=== PATIENT | female | born 1955 | race Caucasian/White ===

== ENCOUNTER 2020-11-03 14:26 | Emergency (ER) | payer MEDICARE, SELFPAY ==
[2020-11-03 14:43] VITALS: BP 207/114; PULSE 70; RESP 16; TEMP 36.8; O2SAT 96; BMI 49.8
--- NOTE | 2020-11-03 15:17 | ECG_ITS ---
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 Measurements Intervals [place] Rate: 67 P: 31 HI: 168 QRS: -22 QRSD: 109 T: 70 QT: 383 QTc: 406 Interpretive Statements SINUS RHYTHM BORDERLINE LEFT AXIS DEVIATION [QRS AXIS < -20] NONSPECIFIC T-WAVE ABNORMALITY Compared to ECG 08/24/2016 16:29:48 T-wave abnormality now present Electronically Signed On 11-04-2020 12:18:13 CDT by Tutu Arnold M.D. [id number]
[2020-11-03 15:20] VITALS: BP 246/95; PULSE 0; PULSE 75; O2SAT 96
--- NOTE | 2020-11-03 15:29 | W.ED.GENADLT ---
HPI - General Adult General: Chief complaint: General Medical Stated complaint: HIGH BP/WEAKNESS Time Seen by Provider: 11/03/20 15:16 History of Present Illness: HPI narrative: 65-year-old female presents emergency room for elevated blood pressure. She has known hypertension in the past she takes propranolol only takes 10 mg 4-5 times a day. She is taken higher doses in the past but states it makes her feel very tired. She has an appointment on Thursday to be evaluated for blood pressure because been running high for the last 2 weeks she had a blood pressure machine at home reports getting blood pressure as high as 254/134. She denies any chest pain no difficulty with vision speech hearing no gait instabilities or balance problems. She is not noticed any problem with fine motor movements. She denies any headache generally she is not been feeling well. She is not taken any other extra medications recently. Does not take any stimulants use large doses of caffeine or decongestants. Onset (ago): day(s) Relieving factors: none Exacerbating factors: none Associated symptoms: Reports headache(s) and malaise; Deny chest pain, confusion, cough, diaphoresis, decreased appetite, dyspnea, fevers/chills, nausea, rash, palpitations, seizures, short of breath, syncope, vomiting or weakness Treatments prior to arrival: other (Propranolol) Review of Systems Const: Reports: malaise; Denies: diaphoresis ENMT: Denies: throat pain, ear or mastoid pain, nasal discharge or nasal congestion Card: Denies: chest pain, palpitations or syncope Resp: Denies: dyspnea GI: Denies: nausea or vomiting : Denies: flank pain, difficulty voiding, dysuria, urinary frequency or urinary urgency Skin/Breast: Denies: rash Neuro: Reports: headache(s); Denies: confusion Physical Exam Const: COMMON NORMALS: no acute distress GENERAL APPEARANCE: cooperative and comfortable ORIENTATION/CONSCIOUSNESS: Yes awake, Yes oriented to person, Yes oriented to place and Yes oriented to time HENMT: COMMON NORMALS: normocephalic, atraumatic and hearing grossly normal bilaterally HEAD & SCALP: normocephalic and atraumatic Neck/C-Spine: COMMON NORMALS: no JVD Resp: COMMON NORMALS: normal respiratory effort, No retractions, No use of accessory muscles and clear to auscultation bilaterally AUSCULTATION: clear to auscultation bilaterally Cardio: COMMON NORMALS: no JVD, regular rate, regular rhythm and No murmurs present (Cardio) RATE: regular rate RHYTHM: regular rhythm GI: COMMON NORMALS: Soft to palpation and No hepatosplenomegaly present AUSCULTATION: Yes normoactive bowel sounds PALPATION: Yes Soft to palpation, No Tenderness to palpation present (GI), No Guarding due to palpation present (GI) and Yes No hepatosplenomegaly present Extremity: COMMON NORMALS: normal to inspection, capillary refill normal, no clubbing, cyanosis or edema, no calf tenderness and no pedal edema Neuro: SENSORIUM/ORIENTATION: Yes oriented to person, Yes oriented to place and Yes oriented to time Skin: COMMON NORMALS: no rashes or lesions noted GENERAL SKIN EXAM: no rashes or lesions noted Course Vital Signs: Vital signs: Vital Signs Temperature 98.2 F 11/03/20 14:43 Pulse Rate 85 11/03/20 17:29 Respiratory Rate 16 11/03/20 14:43 Blood Pressure 166/91 11/03/20 17:29 Pulse Oximetry 94 11/03/20 17:29 MDM - General Adult MDM Narrative: Medical decision making narrative: Pressure improved. Reviewed imaging labs and EKG with the patient. Will discharge home with blood pressure regimen medications as prescribed stop the propranolol follow-up with his primary care doctor in the next 1 week with blood pressure log. If you have worsening or change problems she was advised to return immediately to the emergency room. Lab Data: Labs: Lab Results 11/03/20 11/03/20 Range/Units 16:07 16:07 WBC 8.5 (4.0-10.0) 10^3/ uL RBC 4.65 (4.1-5.3) 10^6/u L Hgb 14.6 (11.5-15.3) g/dL Hct 43.2 (37.0-47.0) % MCV 92.9 (81-99) fL MCH 31.4 (28.0-34.0) pg MCHC 33.8 (30.0-36.0) g/dL RDW 12.4 (12.1-15.1) % Plt Count 155 (130-400) 10^3/c mm MPV 11.7 H (7.4-10.4) fL Neut % (Auto) 67.4 % Lymph % (Auto) 24.3 % [place] % (Auto) 5.7 % Eos % (Auto) 1.8 % Baso % (Auto) 0.6 % Neut # (Auto) 5.72 (1.8-7.7) 10^3/u L Lymph # (Auto) 2.1 (0.8-4.8) 10^3/u L [place] # (Auto) 0.5 (0.2-0.9) 10^3/u L Eos # (Auto) 0.2 (0.0-0.8) 10^3/u L Baso # (Auto) 0.1 (0.0-0.1) 10^3/u L Nucleated RBC % (a uto) 0 % Nucleated RBCs # 0.0 /100WBC Sodium 137 (136-145) mmol/L Potassium 4.4 (3.5-5.1) mmol/L Chloride 101 (98-107) mmol/L Carbon Dioxide 26 (22-29) mmol/L Anion Gap 14.4 (5-19) BUN 12 (8-23) mg/dL Creatinine 0.4 L (0.5-0.9) mg/dL GFR Calculation 160.2 H (90-130) mL/min Glucose 93 (65-115) mg/dL Calculated Osmolal ity 283 L (285-295) mOsm/k g Calcium 9.2 (8.5-10.5) mg/dL Total Bilirubin 0.9 (0.15-1.2) mg/dL AST 20 (0-32) U/L ALT 18 (0-33) U/L Alkaline Phosphata se 74 (35-105) IU/L Total Protein 7.0 (6.6-8.7) g/dL Albumin 4.1 (3.5-5.2) g/dL Globulin 2.9 (1.3-4.6) g/dL Discharge Plan Discharge Patient Disposition: Home Clinical Impression: Hypertension Condition: Stable Prescriptions: New Toprol XL 50 mg tablet extended release 24 hr 25 mg PO DAILY Qty: 30 RF: 0 amlodipine 10 mg tablet 5 mg PO DAILY Qty: 30 RF: 0 lisinopril 10 mg tablet 10 mg PO DAILY Qty: 30 RF: 0 Discharge Orders: Discharge ED (Routine); Ordered 11/03/20 Ordered By: Addy Best Referrals: Danielle Caldera, [Primary Care Provider] - Discharge Diet: Usual diet Patient Instructions: Opioid Safety Activity Restrictions/Additional Instructions: Avoid strenuous activity. Follow-up with your doctor next week to reevaluate blood pressure. Return if you have further problems. Coding Level of Care Code ED Social Media Marketing Analyst for Jasbir Maynard
[2020-11-03] MEDS: amlodipine 10 mg Tablet PO (15:59)
[2020-11-03] MEDS: metoprolol tartrate 1 mg/1 mL SDV 5 mL 2.5 MG IV (15:59)
[2020-11-03] MEDS: hyDRALAzine 20 mg/mL INJ 1 mL IVP (15:59)
[2020-11-03] MEDS: metoprolol tartrate 25 mg Tablet PO (15:59)
[2020-11-03 16:17] LABS: Basophils # 0.1 10^3/uL (0.0-0.1); Basophils % 0.6 %; Eosinophils # 0.2 10^3/uL (0.0-0.8); Eosinophils % 1.8 %; Hematocrit 43.2 % (37.0-47.0); Hemoglobin 14.6 g/dL (11.5-15.3); Lymphocytes # 2.1 10^3/uL (0.8-4.8); Lymphocytes % 24.3 %; Mean Corpuscular HGB Conc 33.8 g/dL (30.0-36.0); Mean Corpuscular Hemoglobin 31.4 pg (28.0-34.0); Mean Corpuscular Volume 92.9 fL (81-99); Mean Platelet Volume 11.7 fL (7.4-10.4); Monocytes # 0.5 10^3/uL (0.2-0.9); Monocytes % 5.7 %; Neutrophils # 5.72 10^3/uL (1.8-7.7); Neutrophils % 67.4 %; Nucleated Red Blood Cells % 0 %; Platelet Count 155 10^3/cmm (130-400); Red Blood Count 4.65 10^6/uL (4.1-5.3); Red Cell Distribution Width 12.4 % (12.1-15.1); White Blood Count 8.5 10^3/uL (4.0-10.0)
[2020-11-03 16:35] LABS: Alanine Aminotransferase 18 U/L (0-33); Albumin Level 4.1 g/dL (3.5-5.2); Alkaline Phosphatase 74 IU/L (35-105); Anion Gap 14.4 (5-19); Aspartate Amino Transferase 20 U/L (0-32); Blood Urea Nitrogen 12 mg/dL (8-23); Calcium 9.2 mg/dL (8.5-10.5); Carbon Dioxide 26 mmol/L (22-29); Chloride 101 mmol/L (98-107); Globulin 2.9 g/dL (1.3-4.6); Glomerular Filtration Rate 160.2 mL/min (90-130); Glucose 93 mg/dL (65-115); Osmolality Calculated 283 mOsm/kg (285-295); Potassium 4.4 mmol/L (3.5-5.1); Sodium 137 mmol/L (136-145); Total Bilirubin 0.9 mg/dL (0.15-1.2)
[2020-11-03 16:59] VITALS: BP 151/88; PULSE 84; O2SAT 94
[2020-11-03 17:29] VITALS: BP 166/91; PULSE 85; O2SAT 94
== END 2020-11-03 17:30 | disposition home or self-care (01) ==
PROVIDERS: Emergency Provider Family Medicine; PCP Family Medicine
DX: I10 Essential (primary) hypertension (principal)
CPT/HCPCS: 80053; 85025; 93005; 96374; 96375; 99284; J0360; J3490

== ENCOUNTER 2021-01-02 12:30 | Outpatient (CLI) | payer MEDICARE, SELFPAY | END 2021-01-02 12:31 | disposition home or self-care (01) | LOC: SLEEP 01-03 11:20 | PROVIDERS: PCP Family Medicine; Visit Provider Nurse Practitioner Family | DX: G47.10 Hypersomnia, unspecified (principal) | CPT/HCPCS: G0399 ==

== ENCOUNTER 2021-06-18 08:09 | Outpatient (CLI) | payer MEDICARE, SELFPAY ==
--- NOTE | 2021-06-18 08:17 | USCV_ITS ---
Hayley Bansal Age: 66 Gender: F : 1955 Exam Date: 06/18/2021 08:33 Ordering Phys: Leah Craig NP Technologist: Lorenzo iWlhelm [place] [facility] [place]: SOB BP: 132 / 70 HR: 71 Rhythm: Sinus Technical Quality: Adequate MEASUREMENTS (Male / Female) Normal Values 2D ECHO LV Diastolic Diameter PLAX 4.7 cm 4.2 - 5.9 / 3.9 - 5.3 cm LV Systolic Diameter PLAX 3.0 cm IVS Diastolic Thickness 1.2 cm 0.6 - 1.0 / 0.6 - 0.9 cm IVS Systolic Thickness 1.4 cm LVPW Diastolic Thickness 1.3 cm 0.6 - 1.0 / 0.6 - 0.9 cm LVPW Systolic Thickness 1.8 cm LVOT Diameter 2.0 cm LV Ejection Fraction 2D Teich 67.1 % LV Ejection Fraction MOD 2C 67.9 % LV Ejection Fraction 2C AL 68.5 % LA Diameter 3.6 cm LA Width 4.0 cm LA Height 5.0 cm RA Width 3.5 cm RA Height 3.9 cm Aorta at Sinotubular Diameter 2.4 cm M-MODE Aortic Annulus Diameter 2.5 cm LA Ao Ratio MM 1.4 MV E Point Septal Separation 0.4 cm DOPPLER AV Peak Velocity 181.3 cm/s LVOT Peak Velocity 132.0 cm/s AV Area Cont Eq vti 2.3 cm squared AV Area Cont Eq pk 2.3 cm squared MV Peak Velocity 140.0 cm/s MV Area PHT 3.9 cm squared Mitral E to A Ratio 0.7 MV E' Velocity 43.5 cm/s Mitral E to MV E' Ratio 8.1 Mitral E to LV E' Lateral Ratio 8.7 Mitral E to LV E' Septal Ratio 7.7 Right Atrial Pressure 3.0 mmHg RV Acceleration Time 0.1 s RV Ejection Time 0.3 s RV AcT/ET 0.3 FINDINGS Left Ventricle Normal left ventricular size and systolic function, EF 64 %. No regional wall motion abnormalities. Mild left ventricular hypertrophy. Grade I/IV diastolic dysfunction (abnormal relaxation filling pattern), normal to mildly elevated filling pressures. Right Ventricle The right ventricle is normal in size and function. Right Atrium The right atrium is normal in size. Left Atrium Mildly increased left atrial size. Mitral Valve Trace mitral valve regurgitation. Aortic Valve Thickened aortic valve. Aortic valve sclerosis. Tricuspid Valve No gross abnormalities noted Pulmonic Valve Pulmonic valve not well visualized. Pericardium Normal pericardium without effusion. Aorta Normal ascending aorta dimension. CONCLUSIONS Normal left ventricular size and systolic function, EF 64 %. No regional wall motion abnormalities. Mild left ventricular hypertrophy. Grade I/IV diastolic dysfunction (abnormal relaxation filling pattern), normal to mildly elevated filling pressures. Mildly increased left atrial size. Trace mitral valve regurgitation. Features of aortic valve sclerosis. There is no pericardial effusion. There are no intracardiac masses. No previous study is available for comparison. Dr Davin Forbes MD FAC (Electronically Signed) Final Date: 18 June 2021 14:05 S
== END 2021-06-18 08:10 | disposition home or self-care (01) ==
LOC: RAD 08:12
PROVIDERS: PCP Family Medicine; Visit Provider Nurse Practitioner Family
DX: R06.02 Shortness of breath (principal); I34.0 Nonrheumatic mitral (valve) insufficiency
CPT/HCPCS: 93306

== ENCOUNTER 2021-07-15 11:44 | Outpatient (CLI) | payer MEDICARE, SELFPAY ==
--- NOTE | 2021-07-15 11:53 | MM_ITS ---
WS: [id number] VIEWS: MLO and CC views both breasts. 3D digital tomosynthesis is also included in this exam. Comparison made with prior exam of 09/29/2019. Findings: There was no sign of mass, architectural distortion or suspicious calcification in either breast. Sc attered fibroglandular densities MM/[place] [id number] Impression: BI-RADS: 2-Benign FOLLOW-UP: 1 Year Follow-up This mammogram was also analyzed by the Computer Aided Detection System R2 Imag e Special Agent In Charge.
== END 2021-07-15 11:45 | disposition home or self-care (01) ==
LOC: RAD 11:46
PROVIDERS: PCP Family Medicine; Visit Provider Nurse Practitioner Family
DX: Z12.31 Encounter for screening mammogram for malignant neoplasm of breast (principal)
CPT/HCPCS: 77063; 77067

== ENCOUNTER → 2021-07-18 12:33 | Outpatient (BNVA) | payer MEDICARE, SELFPAY | PROVIDERS: PCP Family Medicine; Referring Provider Nurse Practitioner Family; Visit Provider Surgery | DX: Z12.11 Encounter for screening for malignant neoplasm of colon (principal) ==

== ENCOUNTER → 2021-08-20 12:39 | Outpatient (BNVA) | payer MEDICARE, SELFPAY | PROVIDERS: PCP Nurse Practitioner Family; Visit Provider Internal Medicine Cardiovascular Disease | DX: I11.0 Hypertensive heart disease with heart failure (principal); I50.9 Heart failure, unspecified; E66.9 Obesity, unspecified; Z68.42 Body mass index [BMI] 45.0-49.9, adult; G47.33 Obstructive sleep apnea (adult) (pediatric) | CPT/HCPCS: 99204 ==

== ENCOUNTER → 2021-08-28 08:58 | Outpatient (BNVA) | payer MEDICARE, SELFPAY | PROVIDERS: PCP Nurse Practitioner Family; Visit Provider Internal Medicine Cardiovascular Disease | DX: I10 Essential (primary) hypertension (principal); I50.9 Heart failure, unspecified | CPT/HCPCS: 80048; 83735; 83880 ==

== ENCOUNTER 2021-09-13 07:20 | Day surgery (SDC) | payer MEDICARE, SELFPAY ==
[2021-09-11 10:59] VITALS: BMI 49.9
[2021-09-13 07:35] VITALS: BP 176/89; PULSE 72; RESP 18; TEMP 36.6; O2SAT 96
--- NOTE | 2021-09-13 08:26 | PC.NURSE ---
Dr Treadwell started IV in right forearm.
[2021-09-13] MEDS: sodium chloride 0.9% 1,000 ML 30 ML IV (08:27)
--- NOTE | 2021-09-13 08:52 | P.ANESASSM_ITS ---
Pre-Anesthetic Assessment Height/Weight: Height 1.6 m Weight 127.913 kg Temp Pulse Resp BP Pulse Ox 97.8 F 72 18 176/89 96 09/13/21 07:35 09/13/21 07:35 09/13/21 07:35 09/13/21 07:35 09/13/21 07:35 Preop Diagnosis: diagnostic Operation Date: 09/13/21 09:00 Proposed Procedures p Colonoscopy 71111/Z12.11 screening for malignant neoplasm of colon(Not Osvaldo licable) - Zaid Santamaria MD Familial anesthetic complications: None Was Beta Jewell taken within 24 hours: Yes Was Clonidine taken within 24 hours: N/A Last intake: Intake Last Liquid Date 09/12/21 Last Liquid Time 23:00 Last Solid Date 09/11/21 Last Solid Time 17:00 Social No alcohol and No tobacco Exam alert, oriented x 3, clear to auscultation bilaterally and regular rate & rhythm Airway Submandibular: within normal limits Cervical ROM: within normal limits Mallampati: Class II Pulmonary Asthma and Sleep Apnea CV/HEM Congestive Heart Failure (diastolic dysfunction) and Hypertension Metabolic Morbid Obesity Anesthetic Plan ASA status: 3 Anesthesia: MAC Medications/Allergies Home Medications Medication Instructions Recorded Confirmed Last Taken Type acetaminophen 500 mg tablet 500 mg PO Q6H PRN 08/20/21 09/13/21 09/12/21 History albuterol sulfate 2.5 mg INHALATION Q4H PRN 08/20/21 09/13/21 08/14/21 History albuterol sulfate 90 mcg/actuation 2 puff INHALATION Q6H PRN 08/20/21 09/13/21 08/14/21 History aerosol inhaler amlodipine 10 mg tablet 10 mg PO DAILY tab 08/20/21 09/13/21 09/12/21 History azelastine 205.5 mcg (0.15 %) 1 spray INTRANASAL BID 08/20/21 09/13/21 09/12/21 History nasal spray chlorthalidone 25 mg tablet 25 mg PO DAILY #30 tab 08/20/21 09/13/21 09/12/21 Rx citalopram 20 mg tablet 20 mg PO DAILY 08/20/21 09/13/21 09/12/21 History cyclobenzaprine 10 mg tablet 10 mg PO PRN PRN 08/20/21 09/13/21 09/09/21 History gabapentin 100 mg capsule 200 mg PO TID cap 08/20/21 09/13/21 09/12/21 History hydroxyzine HCl 25 mg tablet 25 mg PO BID PRN 08/20/21 09/13/21 09/12/21 History ibuprofen 200 mg tablet 200 mg PO Q6H PRN 08/20/21 09/13/21 09/11/21 History metoprolol succinate 50 mg 50 mg PO DAILY tab 08/20/21 09/13/21 09/12/21 History tablet,extended release 24 hr (Toprol XL) omeprazole 20 mg capsule,delayed 20 mg PO DAILY 08/20/21 09/13/21 09/11/21 History release potassium chloride 10 mEq 10 meq PO DAILY #90 cap 09/02/21 09/13/21 09/11/21 Rx capsule,extended release Allergies Allergy/AdvReac Type Severity Reaction Status Date / Time No Known Allergies Allergy Unverified 07/18/21 13:43 Current Medications Generic Name Dose Route Start Last Admin Trade Name Janiq PRN Reason Stop Dose Admin Sodium Chloride 1,000 mls @ 30 mls/hr 09/13/21 07:30 09/13/21 08:27 Sodium Chloride 0.9% IV 09/14/21 07:29 30 mls/hr .Q24H AMARILIS Administration PFSH Anesthesia Medical History (Updated 08/20/21 @ 13:37 by Nicole Mon MD) Anxiety and depression CHF (congestive heart failure), NYHA class III HTN (hypertension) Obesity ASHER (obstructive sleep apnea) Surgical History (Updated 08/20/21 @ 13:14 by Nicole Mon MD) S/P appendectomy (~1968) S/P cholecystectomy (~1992) S/P hysterectomy (~2000) Family History Mother CHF (congestive heart failure) Diabetes Hypertension Family/Other CHF (congestive heart failure) Father Stroke Hypertension Chronic kidney disease (CKD) Social History Smoking and tobacco status: never smoked Data Anesthesia Cardiac Studies: Echocardiogram 06/18/21
--- NOTE | 2021-09-13 09:26 | P.HP_ITS ---
Same Day Surgery H&P Indication for Procedure/HPI DATE OF PROCEDURE: September 13, 2021 CHIEF COMPLAINT/INDICATIONFOR SURGICAL PROCEDURE: colonoscopy PREOP DIAGNOSIS: diagnostic PLANNED PROCEDURE: Operation Date: 09/13/21 09:00 Proposed Procedures p Colonoscopy 45978/Z12.11 screening for malignant neoplasm of colon(Not Applicable) - Zaid Santamaria MD Medications/Allergies* Home Medications Medication Instructions Recorded Confirmed Type acetaminophen 500 mg tablet 500 mg PO Q6H PRN 08/20/21 09/13/21 History albuterol sulfate 2.5 mg INHALATION Q4H PRN 08/20/21 09/13/21 History albuterol sulfate 90 mcg/actuation 2 puff INHALATION Q6H PRN 08/20/21 09/13/21 History aerosol inhaler amlodipine 10 mg tablet 10 mg PO DAILY tab 08/20/21 09/13/21 History azelastine 205.5 mcg (0.15 %) 1 spray INTRANASAL BID 08/20/21 09/13/21 History nasal spray citalopram 20 mg tablet 20 mg PO DAILY 08/20/21 09/13/21 History cyclobenzaprine 10 mg tablet 10 mg PO PRN PRN 08/20/21 09/13/21 History gabapentin 100 mg capsule 200 mg PO TID cap 08/20/21 09/13/21 History hydroxyzine HCl 25 mg tablet 25 mg PO BID PRN 08/20/21 09/13/21 History ibuprofen 200 mg tablet 200 mg PO Q6H PRN 08/20/21 09/13/21 History metoprolol succinate 50 mg 50 mg PO DAILY tab 08/20/21 09/13/21 History tablet,extended release 24 hr (Toprol XL) omeprazole 20 mg capsule,delayed 20 mg PO DAILY 08/20/21 09/13/21 History release Allergies/Adverse Reactions Allergy/AdvReac Type Severity Reaction Status Date / Time No Known Allergies Allergy Unverified 07/18/21 13:43 Current Medications: Generic Name Dose Route Start Last Admin Trade Name Freq PRN Reason Stop Dose Admin Sodium Chloride 1,000 mls @ 30 mls/hr 09/13/21 07:30 09/13/21 08:27 Sodium Chloride 0.9% IV 09/14/21 07:29 30 mls/hr .Q24H AMARILIS Administration Pertinent History/Comorbid Conditions* Medical History (Updated 08/20/21 @ 13:37 by Nicole Mon MD) Anxiety and depression CHF (congestive heart failure), NYHA class III HTN (hypertension) Obesity ASHER (obstructive sleep apnea) Surgical History (Updated 08/20/21 @ 13:14 by Nicole Mon MD) S/P appendectomy (~1968) S/P cholecystectomy (~1992) S/P hysterectomy (~2000) Family History (Updated 08/20/21 @ 12:59 by Isabel Morales RN) Diabetes Mother CHF (congestive heart failure) Mother Family/Other Chronic kidney disease (CKD) Father Hypertension Mother Father Stroke Father Social History Smoking and tobacco status: never smoked Pertinent Exam Findings alert, oriented x 3 and regular rate & rhythm Recommendations Surgery/Procedure today Coding Level of Care Code Acute Manager Risk Management for Jasbir Maynard
[2021-09-13 09:59] VITALS: BP 146/69; PULSE 68; RESP 18; TEMP 36.1; O2SAT 99
--- NOTE | 2021-09-13 10:02 | ANE.PACU2 ---
Inpatient post-anesthesia follow up: Airway intact: Yes Vital signs: Temperature 97.0 F Pulse Rate 68 Respiratory Rate 18 Blood Pressure 146/69 Pulse Oximetry 99 Oxygen Delivery Me thod Nasal Cannula Oxygen Flow Rate 4 Fraction of Inspir ed Oxygen Hydration adequate: Yes Nausea and vomiting: No Pain level: 1 Mental status: Baseline
[2021-09-13 10:12] VITALS: BP 159/80; PULSE 71; RESP 18; O2SAT 100
== END 2021-09-13 10:22 | disposition home or self-care (01) ==
PROVIDERS: PCP Nurse Practitioner Family; Visit Provider Surgery
PROC: 0DJD8ZZ Inspection of Lower Intestinal Tract, Via Natural or Artificial Opening Endoscopic (ICD-10-PCS; CPT 45378; principal; 2021-09-13 09:00)
DX: Z12.11 Encounter for screening for malignant neoplasm of colon (principal); K57.30 Diverticulosis of large intestine without perforation or abscess without bleeding; D12.8 Benign neoplasm of rectum; K64.8 Other hemorrhoids; F41.9 Anxiety disorder, unspecified; F32.9 Major depressive disorder, single episode, unspecified; I11.0 Hypertensive heart disease with heart failure; I50.9 Heart failure, unspecified; E66.9 Obesity, unspecified; Z68.43 Body mass index [BMI] 50.0-59.9, adult; G47.33 Obstructive sleep apnea (adult) (pediatric); Z82.49 Family history of ischemic heart disease and other diseases of the circulatory system; Z82.3 Family history of stroke
CPT/HCPCS: 45385; 88305; J2704; J7030

== ENCOUNTER → 2021-10-01 09:14 | Outpatient (BNVA) | payer MEDICARE, SELFPAY | PROVIDERS: PCP Nurse Practitioner Family; Visit Provider Surgery | DX: Z09 Encounter for follow-up examination after completed treatment for conditions other than malignant neoplasm (principal) | CPT/HCPCS: 99212 ==

== ENCOUNTER → 2021-11-06 11:31 | Outpatient (BNVA) | payer MEDICARE, SELFPAY | PROVIDERS: PCP Nurse Practitioner Family; Referring Provider Nurse Practitioner Family; Visit Provider Orthopaedic Surgery | DX: M17.12 Unilateral primary osteoarthritis, left knee (principal) | CPT/HCPCS: 20610; 73560; 73565; 99203 ==

== ENCOUNTER → 2021-11-19 13:45 | Outpatient (BNVA) | payer MEDICARE, SELFPAY | PROVIDERS: PCP Nurse Practitioner Family; Visit Provider Internal Medicine Cardiovascular Disease | DX: I11.0 Hypertensive heart disease with heart failure (principal); I50.30 Unspecified diastolic (congestive) heart failure; G47.33 Obstructive sleep apnea (adult) (pediatric); E66.9 Obesity, unspecified; Z68.43 Body mass index [BMI] 50.0-59.9, adult | CPT/HCPCS: 99214 ==

== ENCOUNTER 2022-01-05 13:51 | Emergency (ER) | payer MEDICARE, SELFPAY ==
[2022-01-05 13:58] VITALS: BP 187/107; PULSE 81; RESP 18; TEMP 36.5; O2SAT 93; BMI 70.5
--- NOTE | 2022-01-05 14:22 | ECG_ITS ---
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 Measurements Intervals [place] Rate: 73 P: 27 NC: 177 QRS: -54 QRSD: 113 T: 51 QT: 398 QTc: 441 Interpretive Statements SINUS RHYTHM PATTERN CONSISTENT WITH PULMONARY DISEASE LEFT ANTERIOR FASCICULAR BLOCK [QRS AXIS <= -45, QR IN I, RS IN II] POSSIBLE LEFT VENTRICULAR HYPERTROPHY [VOLTAGE CRITERIA PLUS LAE OR QRS WIDENING] NONSPECIFIC ST & T-WAVE ABNORMALITY Compared to ECG 11/03/2020 15:25:04 Left anterior fascicular block now present T-wave abnormality still present Electronically Signed On 01-05-2022 18:24:19 CDT by Davin Forbes M.D. [id number]
--- NOTE | 2022-01-05 15:15 | ED_ITS ---
HPI - General Adult General: Chief complaint: Weakness Stated complaint: dizzy, chills, weak Time Seen by Provider: 01/05/22 15:12 History of Present Illness: Patient is a 66-year-old male w/ hx of anxiety, CHF, hypertension who presents to the emergency room for evaluation of cold s ensation over the body. Patient first noticed symptoms earlier today when upon waking up. Patient states that this cold rash last for few seconds at a time and goes over her. Patient reports lightheadedness when this happens. Patient denies any prior sensation similar to this point. Patient denies any paresthesia or any weakness associated with the symptoms. Patient also denies any fever, cough, runny nose sore throat chest pain, shortness of breath, abdominal pain, diarrhea melena or hematochezia. Patient has no other focal complaints at this time. Onset:this AM Duration:ongoing Location:home Severity:mild/moderate Associated symptoms: Deny chest pain, dyspnea, nausea, rash, palpitations or vomiting Review of Systems Const: Reports: chills and other (+cold sensation ove rbody); Denies: fever(s) Eyes: Denies: change in vision ENMT: Denies: mouth pain Card: Denies: chest pain or palpitations Resp: Denies: dyspnea or non-productive cough GI: Denies: abdominal pain, nausea, vomiting or diarrhea : Denies: dysuria Musc: Denies: extremity pain Skin/Breast: Denies: rash or new lesions Neuro: Denies: weakness in extremities Psych: Reports: other (Normal mood) Shayne/Lymph: Denies: easy bruising PFSH ED PFSH: Medical History Anxiety and depression CHF (congestive heart failure), NYHA class III HTN (hypertension) Obesity ASHER (obstructive sleep apnea) Surgical History S/P appendectomy (~1968) S/P cholecystectomy (~1992) S/P hysterectomy (~2000) Status post colonoscopy (09/13/21) Family History Mother CHF (congestive heart failure) Diabetes Hypertension Family/Other CHF (congestive heart failure) Father Stroke Hypertension Chronic kidney disease (CKD) Social History Smoking and tobacco status: never smoked Physical Exam Const: COMMON NORMALS: alert HENMT: COMMON NORMALS: atraumatic HEAD & SCALP: atraumatic MOUTH: moist mucous membranes not abnormal Eye: COMMON NORMALS: EOMs intact bilaterally and conjunctivae normal CONJUNCTIVA: Yes conjunctivae normal Neck/C-Spine: COMMON NORMALS: full ROM and supple Resp: COMMON NORMALS: normal respiratory effort and clear to auscultation bilaterally AUSCULTATION: clear to auscultation bilaterally Cardio: COMMON NORMALS: regular rate RATE: regular rate GI: COMMON NORMALS: Soft to palpation and non-tender PALPATION: Yes Soft to palpation : OTHER: No focal TTP. NO guarding rebound, guarding, rigidity. No CVA tenderness to percussion. Neg Rivera/Neg McBurney's point tenderness, no suprabupic tenderness to palpation. Extremity: COMMON NORMALS: full ROM OTHER: No escobar sign Neuro: SENSORIUM/ORIENTATION: Yes alert MOTOR EXAM: No Abnormal motor strength present and Other motor observations present (no focal motor deficits) Psych: COMMON NORMALS: speech normal SPEECH: Yes normal speech MOOD & AFFECT: Yes euthymic mood Course Vital Signs: Vital signs: Vital Signs Temperature 97.7 F 01/05/22 13:58 Pulse Rate 90 01/05/22 19:36 Respiratory Rate 18 01/05/22 19:36 Blood Pressure 162/68 01/05/22 19:36 Pulse Oximetry 94 01/05/22 19:36 Oxygen Delivery Me thod 01/05/22 18:30 Oxygen Flow Rate 2 01/05/22 18:30 MDM - General Adult Medical Decision Making Patient is a 66-year-old male w/ hx of anxiety, CHF, hypertension who presents to the emergency room for evaluation of cold sensation over the body. Physical exam, patient is hemodynamically stable. Patient was observed to have episodes of chills over her body lasting for few seconds at a time. Patient is neurologically intact. Rest of exam is unremarkable. Lab work-up showed white count 9.1. Patient's had a sodium 134 and a potassium of 3.1. Rest of labs unremarkable. EKG is unremarkable. X-ray chest appears to be clear. Troponin is within normal limit. A the present time, I do not suspect ACS. Given the fact the patient has a sick contact at home, this could potentially be viral infection. Respiratory viral panel has been sent. Patient continues to be hemodynamically stable in no acute distress while observed in the emergency room. Patient received IVF and Tylenol. Disposition: Discharge. Patient counseled regarding diagnostic impression, treatment plan. Patient given ED strict return precautions to return for continuation, worsening, or development of new symptoms. Instructed to f/u w/ PCP regarding symptoms today. Patient verbalized understanding. Lab Data : 01/05/22 15:45 01/05/22 15:45 Radiology Impressions Chest X-Ray 01/05/22 15:41 IMPRESSION: No acute findings. Laboratory Results WBC 9.1 10^3/uL (4.0-10.0) 01/05/22 15:45 RBC 4.51 10^6/uL (4.1-5.3) 01/05/22 15:45 Hgb 14.0 g/dL (11.5-15.3) 01/05/22 15:45 Hct 40.8 % (37.0-47.0) 01/05/22 15:45 MCV 90.5 fl (81-99) 01/05/22 15:45 MCH 31.0 pg (28.0-34.0) 01/05/22 15:45 MCHC 34.3 g/dL (30.0-36.0) 01/05/22 15:45 RDW 12.4 % (12.1-15.1) 01/05/22 15:45 Plt Count 179 10^3/cmm (130-400) 01/05/22 15:45 MPV 11.4 fL (7.4-10.4) H 01/05/22 15:45 Neut % (Auto) 81.4 % 01/05/22 15:45 Lymph % (Auto) 12.5 % 01/05/22 15:45 [place] % (Auto) 4.1 % 01/05/22 15:45 Eos % (Auto) 0.7 % 01/05/22 15:45 Baso % (Auto) 0.5 % 01/05/22 15:45 Neut # (Auto) 7.41 10^3/uL (1.8-7.7) 01/05/22 15:45 Lymph # (Auto) 1.1 10^3/uL (0.8-4.8) 01/05/22 15:45 [place] # (Auto) 0.4 10^3/uL (0.2-0.9) 01/05/22 15:45 Eos # (Auto) 0.1 10^3/uL (0.0-0.8) 01/05/22 15:45 Baso # (Auto) 0.1 10^3/uL (0.0-0.1) 01/05/22 15:45 Nucleated RBC % (auto) 0 % 01/05/22 15:45 Nucleated RBCs # 0.0 /100WBC 01/05/22 15:45 Sodium 134 mmol/L (136-145) L 01/05/22 15:45 Potassium 3.1 mmol/L (3.5-5.1) L 01/05/22 15:45 Chloride 91 mmol/L (98-107) L 01/05/22 15:45 Carbon Dioxide 32 mmol/L (22-29) H 01/05/22 15:45 Anion Gap 14.1 (5-19) 01/05/22 15:45 BUN 11 mg/dL (8-23) 01/05/22 15:45 Creatinine 0.4 mg/dL (0.5-0.9) L 01/05/22 15:45 GFR Calculation 159.7 mL/min (90-130) H 01/05/22 15:45 Glucose 153 mg/dL (65-115) H 01/05/22 15:45 Calculated Osmolality 280 mOsm/kg (285-295) L 01/05/22 15:45 Lactate 1.5 mmol/L (0.5-2.2) 01/05/22 15:45 Calcium 9.5 mg/dL (8.5-10.5) 01/05/22 15:45 Magnesium 1.9 mg/dL (1.7-2.3) 01/05/22 15:45 Total Bilirubin 0.7 mg/dL (0.15-1.2) 01/05/22 15:45 AST 35 U/L (0-32) H 01/05/22 15:45 ALT 35 U/L (0-33) H 01/05/22 15:45 Alkaline Phosphatase 75 U/L (35-105) 01/05/22 15:45 Troponin T Baseline 8 ng/L (0-10) 01/05/22 15:45 Total Protein 7.5 g/dL (6.6-8.7) 01/05/22 15:45 Albumin 4.1 g/dL (3.5-5.2) 01/05/22 15:45 Globulin 3.4 g/dL (1.3-4.6) 01/05/22 15:45 Urine Color Yellow (Yellow) 01/05/22 14:30 Urine Appearance Sl hazy (CLEAR) A 01/05/22 14:30 Urine pH 6 (5-7) 01/05/22 14:30 Ur Specific [place] 1.020 (1.005-1.030) 01/05/22 14:30 Urine Protein Neg (Negative) 01/05/22 14:30 Urine Glucose (UA) Norm (Normal) 01/05/22 14:30 Urine Ketones 1+ (Negative) H 01/05/22 14:30 Urine Blood Neg (Negative) 01/05/22 14:30 Urine Nitrate Negative (Negative) 01/05/22 14:30 Urine Bilirubin Neg (Negative) 01/05/22 14:30 Urine Urobilinogen Norm mg/dL (Negative) 01/05/22 14:30 Ur Leukocyte Esterase Negative (Negative) 01/05/22 14:30 Urine RBC None /hpf (0-2) 01/05/22 14:30 Urine WBC Rare /hpf (0-5) 01/05/22 14:30 Ur Squamous Epith Cells 0-4 /hpf (0-5) H 01/05/22 14:30 Amorphous Sediment Not Reportable 01/05/22 14:30 Urine Bacteria 1+ /hpf (NONE) H 01/05/22 14:30 Urine Mucus 1+ /hpf 01/05/22 14:30 Nasal Influ A H1 2008 PCR Not detected (NOT DETECT) 01/05/22 15:50 RSV Nasal Swab Cancelled 01/05/22 15:50 RSV Nasal Swab Int Cntl Cancelled 01/05/22 15:50 Adenovirus (PCR) Cancelled 01/05/22 15:50 Adenovirus (PCR) Not detected (NOT DETECT) 01/05/22 15:50 C. pneumoniae DNA (PCR) Not detected (NOT DETECT) 01/05/22 15:50 Coronavirus 229E (PCR) Not detected (NOT DETECT) 01/05/22 15:50 Human Metapneumovir PCR Cancelled 01/05/22 15:50 Human Metapneumovir PCR Not detected (NOT DETECT) 01/05/22 15:50 Influenza A (RT-PCR) Cancelled 01/05/22 15:50 Influenza A (H1) PCR Cancelled 01/05/22 15:50 Influenza A (H1) PCR Not detected (NOT DETECT) 01/05/22 15:50 Influenza A (H3) PCR Cancelled 01/05/22 15:50 Influenza A (H3) PCR Not detected (NOT DETECT) 01/05/22 15:50 Influenza Type A (PCR) Not detected (NOT DETECT) 01/05/22 15:50 Influenza B (RT-PCR) Cancelled 01/05/22 15:50 Influenza Type B (PCR) Not detected (NOT DETECT) 01/05/22 15:50 M. pneumoniae (PCR) Not detected (NOT DETECT) 01/05/22 15:50 Parainfluenzae Type 1 Cancelled 01/05/22 15:50 Parainfluenza 1 (PCR) Not detected (NOT DETECT) 01/05/22 15:50 Parainfluenzae Type 2 Cancelled 01/05/22 15:50 Parainfluenza 2 (PCR) Not detected (NOT DETECT) 01/05/22 15:50 Parainfluenzae Type 3 Cancelled 01/05/22 15:50 Parainfluenza 3 (PCR) Not detected (NOT DETECT) 01/05/22 15:50 Parainfluenza 4 (PCR) Not detected (NOT DETECT) 01/05/22 15:50 RSV Ab Comment Cancelled 01/05/22 15:50 RSV Type A (PCR) Not detected (NOT DETECT) 01/05/22 15:50 RSV Type B (PCR) Not detected (NOT DETECT) 01/05/22 15:50 Rhinovirus (PCR) Cancelled 01/05/22 15:50 Entero/Rhino (PCR) Not detected (NOT DETECT) 01/05/22 15:50 SARS-CoV-2 (PCR) Not detected (NOT DETECT) 01/05/22 15:50 Imaging Data Other Imaging: Radiologist's impression: [address] [address] XRay Report Signed Patient: Hayley Bansal Unit #: [id number] : 1955 Age/Sex: 66 / F ADM Date: 01/05/22 Loc: ER Room/Bed: Attending Dr: Ordering Provider/Ordering MD: Ector Cabrera MD Date of Service: 01/05/22 Procedure(s): XR chest 1V portable [id number] Accession Number(s): [id number] Report Number: [id number] PROCEDURE INFORMATION: Exam: XR Chest Exam date and time: 01/05/2022 3:51 PM Age: 66 years old Clinical indication: Dyspnea TECHNIQUE: Imaging protocol: Radiologic exam of the chest. Views: 1 view. COMPARISON: CR XR chest 1V [id number] 08/24/2016 4:43 PM FINDINGS: Lungs: Unremarkable. No consolidation. Pleural spaces: Unremarkable. No pleural effusion. No pneumothorax. Heart/Mediastinum: Unremarkable. No cardiomegaly. Bones/joints: Unremarkable. XR/XR chest 1V portable [id number] IMPRESSION: No acute findings. ? Dictated By: Arthur Lala MD Signed By: Arthur Lala MD Signed Date/Time: 01/05/22 171 Discharge Plan Discharge Patient Disposition: Home Clinical Impression: Chill Condition: Stable Prescriptions: No Action chlorthalidone 50 mg tablet 50 mg PO DAILY Qty: 90 3RF acetaminophen 500 mg tablet 500 mg PO Q6H PRN (Reason: Pain) albuterol sulfate 2.5 mg /3 mL (0.083 %) solution for nebulization 2.5 mg inhalation Q4H PRN (Reason: Bronchospasm) albuterol sulfate 90 mcg/actuation HFA aerosol inhaler 2 puff inhalation Q6H PRN (Reason: Bronchospasm) amlodipine 10 mg tablet 10 mg PO DAILY azelastine 205.5 mcg (0.15 %) spray,non-aerosol 1 spray intranasal BID Rx Instructions: administer into each nostril citalopram 20 mg tablet 20 mg PO DAILY cyclobenzaprine 10 mg tablet 10 mg PO PRN PRN (Reason: Pain) hydroxyzine HCl 25 mg tablet 25 mg PO BID PRN (Reason: Anxiety) Toprol XL 50 mg tablet extended release 24 hr 50 mg PO DAILY gabapentin 100 mg capsule 200 mg PO TID ibuprofen 200 mg tablet 200 mg PO Q6H PRN (Reason: Pain) omeprazole 20 mg capsule,delayed release(DR/EC) 20 mg PO DAILY PRN (Reason: Heartburn) potassium chloride 20 mEq tablet extended release 20 meq PO DAILY Qty: 90 2RF Discharge Orders: Discharge ED (Routine); Ordered 01/05/22 Ordered By: Ector Cabrera Referrals: Leah Craig NP [Primary Care Provider] - Discharge Diet: Advance as tolerated Discharge Activity: Increase activity as tolerated Activity Restrictions/Additional Instructions: Come back if you have any new or concerning issues. Come back to the emergency room if you have any chest pain, fever or chills, worsening shortness of breath, worsening exertional lightheadedness, or any new or concerning complaints. Coding Level of Care Code ED Ballistics Teacher for Jasbir Fwbrian Exam Comprehensive
--- NOTE | 2022-01-05 15:41 | XRR_ITS ---
PROCEDURE INFORMATION: Exam: XR Chest Exam date and time: 01/05/2022 3:51 PM Age: 66 years old Clinical indication: Dyspnea TECHNIQUE: Imaging protocol: Radiologic exam of the chest. Views: 1 view. COMPARISON: CR XR chest 1V [id number] 08/24/2016 4:43 PM FINDINGS: Lungs: Unremarkable. No consolidation. Pleural spaces: Unremarkable. No pleural effusion. No pneumothorax. Heart/Mediastinum: Unremarkable. No cardiomegaly. Bones/joints: Unremarkable. XR/XR chest 1V portable [id number] IMPRESSION: No acute findings.
--- NOTE | 2022-01-05 15:48 | ECG_ITS ---
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 Measurements Intervals [place] Rate: 70 P: 57 [place]: 189 QRS: -52 QRSD: 116 T: 59 QT: 403 QTc: 436 Interpretive Statements SINUS RHYTHM WITH SINUS ARRHYTHMIA PATTERN CONSISTENT WITH PULMONARY DISEASE LEFT ANTERIOR FASCICULAR BLOCK [QRS AXIS <= -45, QR IN I, RS IN II] NONSPECIFIC ST & T-WAVE ABNORMALITY Compared to ECG 01/05/2022 14:22:56 No significant changes Electronically Signed On 01-05-2022 18:27:05 CDT by Davin Forbes M.D. [id number]
[2022-01-05 15:54] LABS: Basophils # 0.1 10^3/uL (0.0-0.1); Basophils % 0.5 %; Eosinophils # 0.1 10^3/uL (0.0-0.8); Eosinophils % 0.7 %; Hematocrit 40.8 % (37.0-47.0); Lymphocytes # 1.1 10^3/uL (0.8-4.8); Lymphocytes % 12.5 %; Mean Corpuscular HGB Conc 34.3 g/dL (30.0-36.0); Mean Corpuscular Volume 90.5 fl (81-99); Mean Platelet Volume 11.4 fL (7.4-10.4); Monocytes # 0.4 10^3/uL (0.2-0.9); Monocytes % 4.1 %; Neutrophils # 7.41 10^3/uL (1.8-7.7); Neutrophils % 81.4 %; Nucleated Red Blood Cells % 0 %; Platelet Count 179 10^3/cmm (130-400); Red Blood Count 4.51 10^6/uL (4.1-5.3); Red Cell Distribution Width 12.4 % (12.1-15.1); White Blood Count 9.1 10^3/uL (4.0-10.0)
[2022-01-05 16:00] VITALS: BP 154/69; PULSE 73; RESP 16; O2SAT 94
[2022-01-05 16:18] LABS: Lactate (Lactic Acid level) 1.5 mmol/L (0.5-2.2)
[2022-01-05 16:19] LABS: Alanine Aminotransferase 35 U/L (0-33); Albumin Level 4.1 g/dL (3.5-5.2); Alkaline Phosphatase 75 U/L (35-105); Anion Gap 14.1 (5-19); Aspartate Amino Transferase 35 U/L (0-32); Blood Urea Nitrogen 11 mg/dL (8-23); Calcium 9.5 mg/dL (8.5-10.5); Carbon Dioxide 32 mmol/L (22-29); Chloride 91 mmol/L (98-107); Globulin 3.4 g/dL (1.3-4.6); Glomerular Filtration Rate 159.7 mL/min (90-130); Glucose 153 mg/dL (65-115); Magnesium 1.9 mg/dL (1.7-2.3); Osmolality Calculated 280 mOsm/kg (285-295); Potassium 3.1 mmol/L (3.5-5.1); Sodium 134 mmol/L (136-145); Total Bilirubin 0.7 mg/dL (0.15-1.2); Total Protein 7.5 g/dL (6.6-8.7)
[2022-01-05 16:21] LABS: Troponin(5th) Baseline 8 ng/L (0-10)
[2022-01-05] MEDS: sodium chloride 0.9% 500 ML IV (16:34)
[2022-01-05] MEDS: acetaminophen 500 mg Tablet PO (16:34)
[2022-01-05 17:00] VITALS: BP 183/66; PULSE 68; RESP 15; O2SAT 96
[2022-01-05 17:45] LABS: Add Urine Microscopic? YES; Bilirubin Urine Neg (Negative); Blood Urine Neg (Negative); Glucose Urine UA Norm (Normal); Ketones Urine 1+ (Negative); Leukocyte Esterase Urine Negative (Negative); Nitrate Urine Negative (Negative); Protein Urine Neg (Negative); Urine Appearance SL Hazy (CLEAR); Urine Color Yellow (Yellow); Urobilinogen Urine Norm (Negative); pH Urine 6 (5-7)
[2022-01-05 17:46] LABS: Bacteria Urine 1+ /hpf; Mucus Urine 1+ /hpf; Squamous Epithelial Cell Urine 0-4 /hpf (0-5); WBC Urine RARE /hpf (0-5)
[2022-01-05 17:47] LABS: Add Urine Culture? No
[2022-01-05 18:00] VITALS: BP 154/58; PULSE 78; RESP 15; O2SAT 95
[2022-01-05 18:30] VITALS: BP 184/82; PULSE 87; RESP 15; O2SAT 96
--- NOTE | 2022-01-05 18:31 | ECG_ITS ---
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 Measurements Intervals [place] Rate: 81 P: 63 [place]: 188 QRS: -52 QRSD: 112 T: 55 QT: 407 QTc: 473 Interpretive Statements SINUS RHYTHM PATTERN CONSISTENT WITH PULMONARY DISEASE LEFT ANTERIOR FASCICULAR BLOCK [QRS AXIS <= -45, QR IN I, RS IN II] NONSPECIFIC ST & T-WAVE ABNORMALITY Compared to ECG 01/05/2022 15:48:28 Sinus arrhythmia no longer present T-wave abnormality still present Electronically Signed On 01-06-2022 21:29:50 CDT by Davin Forbes M.D. [email or web address]
[2022-01-05 19:11] LABS: Adenovirus Not Detected (NOT DETECT); Chlamydia Pneumoniae Not Detected (NOT DETECT); Coronavirus 229E,HKU1,NL63,OC4 Not Detected (NOT DETECT); Human Metapneumovirus Not Detected (NOT DETECT); Human Rhinovirus/Enterovirus Not Detected (NOT DETECT); Influenza A Not Detected (NOT DETECT); Influenza A H1 Not Detected (NOT DETECT); Influenza A H1-2009 Not Detected (NOT DETECT); Influenza A H3 Not Detected (NOT DETECT); Influenza B Not Detected (NOT DETECT); Mycoplasma Pneumoniae Not Detected (NOT DETECT); Parainfluenza Virus Type 1 Not Detected (NOT DETECT); Parainfluenza Virus Type 2 Not Detected (NOT DETECT); Parainfluenza Virus Type 3 Not Detected (NOT DETECT); Parainfluenza Virus Type 4 Not Detected (NOT DETECT); Respiratory Syncytial Virus A Not Detected (NOT DETECT); Respiratory Syncytial Virus B Not Detected (NOT DETECT); SARS-COV-2 Not Detected (NOT DETECT)
[2022-01-05 19:36] VITALS: BP 162/68; PULSE 90; RESP 18; O2SAT 94
== END 2022-01-05 19:37 | disposition home or self-care (01) ==
PROVIDERS: Emergency Provider Emergency Medicine; PCP Nurse Practitioner Family
DX: R68.83 Chills (without fever) (principal); Z20.822 Contact with and (suspected) exposure to COVID-19; I11.0 Hypertensive heart disease with heart failure; I50.9 Heart failure, unspecified
CPT/HCPCS: 71045; 80053; 81001; 83605; 83735; 84484; 85025; 87486; 87581; 87633; 93005; 96360; 99285; J7040

== ENCOUNTER → 2022-03-17 09:56 | Outpatient (BNVA) | payer MEDICARE, SELFPAY | PROVIDERS: PCP Nurse Practitioner Family; Referring Provider Nurse Practitioner Family; Visit Provider Anesthesiology Pain Medicine | DX: M17.0 Bilateral primary osteoarthritis of knee (principal); M79.604 Pain in right leg; M79.605 Pain in left leg | CPT/HCPCS: 99203 ==

== ENCOUNTER → 2022-05-27 14:38 | Outpatient (BNVA) | payer MEDICARE, SELFPAY | PROVIDERS: PCP Nurse Practitioner Family; Visit Provider Nurse Practitioner Family | DX: I11.0 Hypertensive heart disease with heart failure (principal); I50.9 Heart failure, unspecified | CPT/HCPCS: 99214 ==

== ENCOUNTER 2022-07-31 10:17 | Outpatient (CLI) | payer MEDICARE, SELFPAY ==
--- NOTE | 2022-07-31 10:36 | MM_ITS ---
WS: [id number] Bilateral screening 3D tomosynthesis digital mammogram, 07/31/2022 Clinical Data: SCREENING Comparison: 07/15/2021, 09/29/2019. Findings: The breast parenchymal pattern shows fibroglandular tissue. No spiculated masses or clustered calcifi cations are seen. There are no secondary signs of carcinoma. MM/[place] [id number] Impression: 1. Negative bilateral mammogram unchanged. 2. Recommend annual screening mammograms. BIRADS: 1-Negative FOLLOW UP: 1 Year Follow-up The CAD cash checker was used.
== END 2022-07-31 10:18 | disposition home or self-care (01) ==
LOC: RAD 10:22
PROVIDERS: PCP Nurse Practitioner Family; Visit Provider Nurse Practitioner Family
DX: Z12.31 Encounter for screening mammogram for malignant neoplasm of breast (principal)
CPT/HCPCS: 77063; 77067

== ENCOUNTER 2022-09-29 13:52 | Emergency (ER) | payer MEDICARE, SELFPAY ==
--- NOTE | 2022-09-29 13:58 | XRR_ITS ---
PROCEDURE INFORMATION: Exam: XR Chest Exam date and time: 09/29/2022 1:05 PM Age: 67 years old Clinical indication: Pain; Angina pectoris; Additional info: Cp TECHNIQUE: Imaging protocol: Radiologic exam of the chest. Views: 1 view. COMPARISON: CR XR chest 1V portable [id number] 01/05/2022 3:51 PM FINDINGS: Lungs: Unremarkable. No consolidation. Pleural spaces: Unremarkable. No pleural effusion. No pneumothorax. Heart/Mediastinum: Unremarkable. No cardiomegaly. Bones/joints: Visualized osseous structures show no acute abnormality. Other findings: No significant change with prior exam. XR/XR chest 1V portable [id number] IMPRESSION: No acute cardiopulmonary abnormality.
[2022-09-29 14:16] VITALS: BP 132/75; PULSE 55; RESP 14; TEMP 36.7; O2SAT 94; BMI 52.1
[2022-09-29 14:20] LABS: Basophils # 0.1 10^3/uL (0.0-0.1); Basophils % 0.5 %; Eosinophils # 0.2 10^3/uL (0.0-0.8); Hemoglobin 14.1 g/dL (11.5-15.3); Lymphocytes # 1.8 10^3/uL (0.8-4.8); Lymphocytes % 19.9 %; Mean Corpuscular HGB Conc 34.4 g/dL (30.0-36.0); Mean Corpuscular Hemoglobin 30.9 pg (28.0-34.0); Mean Corpuscular Volume 89.9 fl (81-99); Mean Platelet Volume 11.8 fL (7.4-10.4); Monocytes # 0.5 10^3/uL (0.2-0.9); Monocytes % 5.2 %; Neutrophils # 6.59 10^3/uL (1.8-7.7); Nucleated Red Blood Cells % 0 %; Platelet Count 182 10^3/cmm (130-400); Red Blood Count 4.56 10^6/uL (4.1-5.3); Red Cell Distribution Width 12.4 % (12.1-15.1); White Blood Count 9.2 10^3/uL (4.0-10.0)
[2022-09-29 14:37] LABS: INR 0.96 (0.8-1.2)
--- NOTE | 2022-09-29 14:37 | W.ED.WEAKNES ---
HPI - Weakness General: Chief complaint: Weakness Stated complaint: Weakness, SOB, irregular hr Time Seen by Provider: 09/29/22 14:04 Source: patient Mode of arrival: ambulatory Limitations: no limitations History of Present Illness: 67-year-old female states over the last 2 weeks she has been having some mild shortness of breath states that she has had some generalized weakness as well. She states that she just feels fatigued denies any chest pain denies any fevers has had a mild cough states she does have bilateral knee pain that is chronic in nature no new pains. Associated symptoms: Reports headache(s) and nausea; Denies chest pain, chills, fever(s) or vomiting Review of Systems Const: Reports: fatigue and malaise; Denies: fever(s), chills, body aches or change in appetite ENMT: Denies: throat pain or dental pain Card: Denies: chest pain Resp: Reports: dyspnea GI: Reports: nausea; Denies: abdominal pain or vomiting Musc: Denies: neck pain or back pain Neuro: Reports: headache(s) PFSH ED PFSH: Medical History Anxiety and depression CHF (congestive heart failure), NYHA class III HTN (hypertension) Obesity ASHER (obstructive sleep apnea) Surgical History S/P appendectomy (~1968) S/P cholecystectomy (~1992) S/P hysterectomy (~2000) Status post colonoscopy (09/13/21) Family History Mother CHF (congestive heart failure) Diabetes Hypertension Family/Other CHF (congestive heart failure) Father Stroke Hypertension Chronic kidney disease (CKD) Social History Smoking and tobacco status: never smoked Physical Exam Const: COMMON NORMALS: no acute distress, patient oriented x3 and healthy appearing HENMT: COMMON NORMALS: normocephalic and atraumatic HEAD & SCALP: normocephalic and atraumatic Eye: COMMON NORMALS: Equal, round and reactive pupils present and EOMs intact bilaterally PUPIL: Yes Equal, round and reactive pupils present Neck/C-Spine: COMMON NORMALS: full ROM and supple Chest: COMMONS NORMALS: normal inspection of the chest and normal palpation of entire chest wall Resp: COMMON NORMALS: normal respiratory effort, No retractions, No use of accessory muscles and clear to auscultation bilaterally AUSCULTATION: clear to auscultation bilaterally Cardio: COMMON NORMALS: regular rate, regular rhythm and No murmurs present (Cardio) RATE: regular rate RHYTHM: regular rhythm GI: COMMON NORMALS: Normal to inspection, nondistended, normoactive bowel sounds present, Soft to palpation, non-tender and no masses PALPATION: Yes Soft to palpation Extremity: COMMON NORMALS: normal to inspection and full ROM Neuro: COMMON NORMALS: patient oriented x3, moves all extremities and no focal motor deficits Psych: COMMON NORMALS: mental status grossly normal, Normal thought process present and cooperative THOUGHT PROCESS: Normal thought process present Skin: COMMON NORMALS: no rashes or lesions noted and no wounds GENERAL SKIN EXAM: no rashes or lesions noted Course Vital Signs: Vital signs: Vital Signs Temperature 98.1 F 09/29/22 14:16 Pulse Rate 51 L 09/29/22 15:57 Respiratory Rate 22 H 09/29/22 15:57 Blood Pressure 158/65 09/29/22 15:57 Pulse Oximetry 91 09/29/22 15:57 Oxygen Delivery Me thod Room Air 09/29/22 14:16 MDM - Weakness Medical Decision Making Patient presents with generalized weakness blood work here is all normal she has been well-appearing here heart rate has been in the 50s she is on metoprolol her blood pressure. She is to follow-up with PCP and return if worsening she understands agrees to plan. Medical Records I reviewed the patient's medical records. Lab Data I reviewed the patient's lab results. 09/29/22 14:10 09/29/22 14:10 Radiology Impressions Chest X-Ray 09/29/22 13:58 IMPRESSION: No acute cardiopulmonary abnormality. Laboratory Results WBC 9.2 10^3/uL (4.0-10.0) 09/29/22 14:10 RBC 4.56 10^6/uL (4.1-5.3) 09/29/22 14:10 Hgb 14.1 g/dL (11.5-15.3) 09/29/22 14:10 Hct 41.0 % (37.0-47.0) 09/29/22 14:10 MCV 89.9 fl (81-99) 09/29/22 14:10 MCH 30.9 pg (28.0-34.0) 09/29/22 14:10 MCHC 34.4 g/dL (30.0-36.0) 09/29/22 14:10 RDW 12.4 % (12.1-15.1) 09/29/22 14:10 Plt Count 182 10^3/cmm (130-400) 09/29/22 14:10 MPV 11.8 fL (7.4-10.4) H 09/29/22 14:10 Neut % (Auto) 72.0 % 09/29/22 14:10 Lymph % (Auto) 19.9 % 09/29/22 14:10 [place] % (Auto) 5.2 % 09/29/22 14:10 Eos % (Auto) 2.0 % 09/29/22 14:10 Baso % (Auto) 0.5 % 09/29/22 14:10 Neut # (Auto) 6.59 10^3/uL (1.8-7.7) 09/29/22 14:10 Lymph # (Auto) 1.8 10^3/uL (0.8-4.8) 09/29/22 14:10 [place] # (Auto) 0.5 10^3/uL (0.2-0.9) 09/29/22 14:10 Eos # (Auto) 0.2 10^3/uL (0.0-0.8) 09/29/22 14:10 Baso # (Auto) 0.1 10^3/uL (0.0-0.1) 09/29/22 14:10 Nucleated RBC % (auto) 0 % 09/29/22 14:10 Nucleated RBCs # 0.0 /100WBC 09/29/22 14:10 PT 13.10 SECONDS (12.1-14.9) 09/29/22 14:10 INR 0.96 (0.8-1.2) 09/29/22 14:10 Sodium 133 mmol/L (136-145) L 09/29/22 14:10 Potassium 3.4 mmol/L (3.5-5.1) L 09/29/22 14:10 Chloride 95 mmol/L (98-107) L 09/29/22 14:10 Carbon Dioxide 29 mmol/L (22-29) 09/29/22 14:10 Anion Gap 12.4 (5-19) 09/29/22 14:10 BUN 12 mg/dL (8-23) 09/29/22 14:10 Creatinine 0.5 mg/dL (0.5-0.9) 09/29/22 14:10 GFR Calculation 123.1 mL/min (90-130) 09/29/22 14:10 Glucose 112 mg/dL (65-115) 09/29/22 14:10 Calculated Osmolality 277 mOsm/kg (285-295) L 09/29/22 14:10 Calcium 9.4 mg/dL (8.5-10.5) 09/29/22 14:10 Total Bilirubin 0.8 mg/dL (0.15-1.2) 09/29/22 14:10 AST 16 U/L (0-32) 09/29/22 14:10 ALT 20 U/L (0-33) 09/29/22 14:10 Alkaline Phosphatase 84 U/L (35-105) 09/29/22 14:10 Troponin T Baseline 7 ng/L (0-10) 09/29/22 14:10 NT-Pro-B Natriuret Pep 44 pg/mL (0-125) 09/29/22 14:10 Total Protein 7.0 g/dL (6.6-8.7) 09/29/22 14:10 Albumin 4.3 g/dL (3.5-5.2) 09/29/22 14:10 Globulin 2.7 g/dL (1.3-4.6) 09/29/22 14:10 Urine Color Yellow (Yellow) 09/29/22 15:20 Urine Appearance Clear (CLEAR) 09/29/22 15:20 Urine pH 5 (5-7) 09/29/22 15:20 Ur Specific [place] 1.010 (1.005-1.030) 09/29/22 15:20 Urine Protein Neg (Negative) 09/29/22 15:20 Urine Glucose (UA) Norm (Normal) 09/29/22 15:20 Urine Ketones Negative (Negative) 09/29/22 15:20 Urine Blood Neg (Negative) 09/29/22 15:20 Urine Nitrate Negative (Negative) 09/29/22 15:20 Urine Bilirubin Neg (Negative) 09/29/22 15:20 Urine Urobilinogen Norm mg/dL (Negative) 09/29/22 15:20 Ur Leukocyte Esterase Negative (Negative) 09/29/22 15:20 Discharge Plan Discharge Patient Disposition: Home Clinical Impression: Weakness, Nausea Condition: Stable Prescriptions: New ondansetron 4 mg tablet,disintegrating 4 mg PO Q6H PRN (Reason: nausea and vomiting) Qty: 14 0RF No Action chlorthalidone 50 mg tablet 50 mg PO DAILY Qty: 90 3RF acetaminophen 500 mg tablet 500 mg PO Q6H PRN (Reason: Pain) albuterol sulfate 2.5 mg /3 mL (0.083 %) solution for nebulization 2.5 mg inhalation Q4H PRN (Reason: Bronchospasm) albuterol sulfate 90 mcg/actuation HFA aerosol inhaler 2 puff inhalation Q6H PRN (Reason: Bronchospasm) amlodipine 10 mg tablet 10 mg PO DAILY azelastine 205.5 mcg (0.15 %) spray,non-aerosol 1 spray intranasal BID Rx Instructions: administer into each nostril citalopram 20 mg tablet 20 mg PO DAILY cyclobenzaprine 10 mg tablet 10 mg PO PRN PRN (Reason: Pain) hydroxyzine HCl 25 mg tablet 25 mg PO BID PRN (Reason: Anxiety) Toprol XL 50 mg tablet extended release 24 hr 50 mg PO DAILY gabapentin 100 mg capsule 200 mg PO TID ibuprofen 200 mg tablet 200 mg PO Q6H PRN (Reason: Pain) omeprazole 20 mg capsule,delayed release(DR/EC) 20 mg PO DAILY PRN (Reason: Heartburn) magnesium 250 mg tablet 250 mg PO DAILY potassium chloride 20 mEq tablet extended release 20 meq PO DAILY Qty: 90 2RF Discharge Orders: Discharge ED (Routine); Ordered 09/29/22 Ordered By: Carley Haywood Referrals: Leah Craig NP [Primary Care Provider] - Discharge Diet: Advance as tolerated Discharge Activity: Resume usual activity Patient Instructions: Weakness (ED) Coding Level of Care Code ED Emergency Room Nurse for Jasbir Maynard
[2022-09-29 14:46] LABS: Troponin(5th) Baseline 7 ng/L (0-10)
[2022-09-29 14:55] LABS: Alanine Aminotransferase 20 U/L (0-33); Albumin Level 4.3 g/dL (3.5-5.2); Alkaline Phosphatase 84 U/L (35-105); Anion Gap 12.4 (5-19); Aspartate Amino Transferase 16 U/L (0-32); Blood Urea Nitrogen 12 mg/dL (8-23); Calcium 9.4 mg/dL (8.5-10.5); Carbon Dioxide 29 mmol/L (22-29); Chloride 95 mmol/L (98-107); Globulin 2.7 g/dL (1.3-4.6); Glomerular Filtration Rate 123.1 mL/min (90-130); Glucose 112 mg/dL (65-115); NT Pro B Type Natriuretic Pept 44 pg/mL (0-125); Osmolality Calculated 277 mOsm/kg (285-295); Potassium 3.4 mmol/L (3.5-5.1); Sodium 133 mmol/L (136-145); Total Bilirubin 0.8 mg/dL (0.15-1.2)
[2022-09-29 14:59] VITALS: BP 173/90; PULSE 64; RESP 17; O2SAT 95
--- NOTE | 2022-09-29 15:08 | ECG_ITS ---
[facility] Test Date: 2022-09-29 Pat Name: Hayley Bansal Department: Room: Gender: Female [employer]: : 1955 Requested By: Carley Haywood Order Number: [id number] Whitney MD: Davin Forbes M.D. Measurements Intervals [place] Rate: 61 P: 66 NM: 178 QRS: -43 QRSD: 102 T: 43 QT: 424 QTc: 429 Interpretive Statements SINUS RHYTHM LEFT AXIS DEVIATION [QRS AXIS < -30] PATTERN CONSISTENT WITH PULMONARY DISEASE Compared to ECG 01/05/2022 18:31:31 Left-axis deviation now present Left anterior fascicular block no longer present T-wave abnormality no longer present Electronically Signed On 09-29-2022 18:41:22 CDT by Davin Forbes M.D. [email or web address]
[2022-09-29] MEDS: dexamethasone 10 mg/mL INJ IVP (15:30)
[2022-09-29 15:32] VITALS: BP 158/65; PULSE 52; RESP 18; O2SAT 97
[2022-09-29 15:36] LABS: Add Urine Microscopic? NO; Charge for UA Resulting for Rev
[2022-09-29 15:37] LABS: Bilirubin Urine Neg (Negative); Blood Urine Neg (Negative); Glucose Urine UA Norm (Normal); Ketones Urine Negative (Negative); Leukocyte Esterase Urine Negative (Negative); Nitrate Urine Negative (Negative); Protein Urine Neg (Negative); Urine Appearance Clear (CLEAR); Urine Color Yellow (Yellow); Urobilinogen Urine Norm (Negative); pH Urine 5 (5-7)
[2022-09-29 15:57] VITALS: BP 158/65; PULSE 51; RESP 22; O2SAT 91
== END 2022-09-29 16:00 | disposition home or self-care (01) ==
PROVIDERS: Emergency Provider Emergency Medicine; PCP Nurse Practitioner Family
DX: R53.1 Weakness (principal); R11.0 Nausea; Z79.899 Other long term (current) drug therapy
CPT/HCPCS: 36415; 71045; 80053; 81003; 83880; 84484; 85025; 85610; 93005; 96374; 96375; 99285; J1100

== ENCOUNTER → 2022-12-29 13:47 | Outpatient (BNVA) | payer MEDICARE, SELFPAY | PROVIDERS: PCP Nurse Practitioner Family; Visit Provider Internal Medicine Cardiovascular Disease | DX: I11.0 Hypertensive heart disease with heart failure (principal); I50.30 Unspecified diastolic (congestive) heart failure | CPT/HCPCS: 99214 ==

== ENCOUNTER 2023-01-12 11:12 | Outpatient (CLI) | payer MEDICARE, SELFPAY ==
[2023-01-12 12:03] LABS: Alanine Aminotransferase 17 U/L (0-33); Albumin Level 4.1 g/dL (3.5-5.2); Alkaline Phosphatase 69 U/L (35-105); Anion Gap 13.8 (5-19); Aspartate Amino Transferase 15 U/L (0-32); Blood Urea Nitrogen 14 mg/dL (8-23); Calcium 9.1 mg/dL (8.5-10.5); Carbon Dioxide 27 mmol/L (22-29); Chloride 100 mmol/L (98-107); Globulin 2.6 g/dL (1.3-4.6); Glomerular Filtration Rate 123.1 mL/min (90-130); Glucose 196 mg/dL (65-115); Magnesium 1.9 mg/dL (1.7-2.3); Osmolality Calculated 290 mOsm/kg (285-295); Potassium 3.8 mmol/L (3.5-5.1); Sodium 137 mmol/L (136-145); Total Bilirubin 0.8 mg/dL (0.15-1.2); Total Protein 6.7 g/dL (6.6-8.7)
== END 2023-01-12 11:13 | disposition home or self-care (01) ==
PROVIDERS: PCP Nurse Practitioner Family; Visit Provider Internal Medicine Cardiovascular Disease
DX: I50.9 Heart failure, unspecified (principal)
CPT/HCPCS: 36415; 80053; 83735

== ENCOUNTER → 2023-02-16 13:07 | Outpatient (BNVA) | payer MEDICARE, SELFPAY | PROVIDERS: PCP Nurse Practitioner Family; Visit Provider Nurse Practitioner Family | DX: I11.0 Hypertensive heart disease with heart failure (principal); I50.9 Heart failure, unspecified | CPT/HCPCS: 99214 ==

== ENCOUNTER → 2023-08-18 11:19 | Outpatient (BNVA) | payer MEDICARE, SELFPAY | PROVIDERS: PCP Nurse Practitioner Family; Visit Provider Internal Medicine Cardiovascular Disease | DX: R07.9 Chest pain, unspecified (principal); I11.0 Hypertensive heart disease with heart failure; I50.32 Chronic diastolic (congestive) heart failure; R00.1 Bradycardia, unspecified; E66.01 Morbid (severe) obesity due to excess calories; Z68.43 Body mass index [BMI] 50.0-59.9, adult | CPT/HCPCS: 93005; 99215 ==

== ENCOUNTER → 2024-02-29 14:02 | Outpatient (BNVA) | payer MEDICARE, SELFPAY | PROVIDERS: PCP Nurse Practitioner Family; Visit Provider Internal Medicine Cardiovascular Disease | DX: I11.0 Hypertensive heart disease with heart failure (principal); I50.32 Chronic diastolic (congestive) heart failure; R00.1 Bradycardia, unspecified; I51.89 Other ill-defined heart diseases | CPT/HCPCS: 36415; 80048; 83880; 99214 ==

== ENCOUNTER 2024-04-13 12:12 | Outpatient (CLI) | payer MEDICARE, SELFPAY ==
--- NOTE | 2024-04-13 12:21 | MM_ITS ---
WS: [id number] BILATERAL 3D TOMOSYNTHESIS DIGITAL SCREENING MAMMOGRAPHY WITH CAD CLINICAL INFORMATION: SCREENING HISTORY: Screening mammogram. No current complaints. COMPARISON: 2022 TECHNIQUE: Bilateral CC and MLO views. FINDINGS: Scattered fibroglandular densities bilaterally. No suspicious focal mass, asymmetry, calcifications, or architectural distortion. No evidence of malignancy. Incidental punctate and lucent centered calci fications. Nodular asymmetric densities anterior RIGHT breast unchanged over multiple prior examinati ons dating back to 2019. MM/MM [facility] tomosynthesis [id number] IMPRESSION: DENSITY: There are scattered areas of fibroglandular density. BI-RADS: 2 - Benign. FOLLOW UP: 1 Year Follow-up Recommend return to annual screening mammography.
--- NOTE | 2024-04-13 12:21 | XR_ITS ---
WS: [id number] DEXA (DUAL ENERGY X-RAY ABSORPTIOMETRY) Bone mineral density was performed using a deltaDNA machine. HISTORY: SCREENING FOR OSTEOPOROSIS COMPARISON: None available. Lumbar spine BMD (L1-L4): 1.336 g/cm2 T score: 1.3 Z score: 1.8 Total hip BMD: Left: 1.171 g/cm2. T score: 1.3 Z score: 1.9 Right: 1.172 g/cm2. T score: 1.3 Z score: 1.9 10 year probability of a major osteoporotic fracture is 10.3%. XR/XR DEXA axial skeleton* [id number] IMPRESSION: NORMAL BONE MINERAL DENSITY based upon the WHO classification for females.
== END 2024-04-13 12:13 | disposition home or self-care (01) ==
LOC: RAD 12:15
PROVIDERS: PCP Nurse Practitioner Family; Visit Provider Nurse Practitioner Family
DX: Z12.31 Encounter for screening mammogram for malignant neoplasm of breast (principal); Z78.0 Asymptomatic menopausal state; R92.323 Mammographic fibroglandular density, bilateral breasts; R92.1 Mammographic calcification found on diagnostic imaging of breast; N64.89 Other specified disorders of breast
CPT/HCPCS: 77063; 77067; 77080

== ENCOUNTER → 2024-08-29 09:48 | Outpatient (BNVA) | payer MEDICARE, SELFPAY | PROVIDERS: PCP Nurse Practitioner Family; Visit Provider Nurse Practitioner Family | DX: I11.0 Hypertensive heart disease with heart failure (principal); I50.33 Acute on chronic diastolic (congestive) heart failure; G47.33 Obstructive sleep apnea (adult) (pediatric); F41.9 Anxiety disorder, unspecified | CPT/HCPCS: 99214 ==

== ENCOUNTER → 2025-03-02 14:11 | Outpatient (BNVA) | payer MEDICARE, SELFPAY | PROVIDERS: PCP Nurse Practitioner Family; Visit Provider Internal Medicine Cardiovascular Disease | DX: I11.0 Hypertensive heart disease with heart failure (principal); I50.33 Acute on chronic diastolic (congestive) heart failure; I51.89 Other ill-defined heart diseases; R00.1 Bradycardia, unspecified; R07.9 Chest pain, unspecified; R06.02 Shortness of breath | CPT/HCPCS: 36415; 80048; 83880; 93005; 99214 ==